=== PATIENT | male | born 1950 | race Caucasian/White ===

== ENCOUNTER 2022-11-26 07:45 | Day surgery (SDC) | payer MEDICARE ==
[2022-11-24 13:31] LABS: BASOPHILS # (AUTO) 0.07 K/uL (0.00-0.20); BASOPHILS % (AUTO) 0.7 % (0.0-5.0); EOSINOPHILS # (AUTO) 0.18 K/uL (0.00-0.70); EOSINOPHILS % (AUTO) 1.9 % (0.0-8.0); HEMATOCRIT 44.9 % (42-54); IMMATURE GRANULOCYTE ABSOLUTE 0.04 K/uL (0-1); LYMPHOCYTES # (AUTO) 1.6 K/uL (1.0-4.8); LYMPHOCYTES % (AUTO) 16.4 % (21.0-51.0); MEAN CORPUSCULAR HEMOGLOBIN 32.6 pg (27.0-33.0); MEAN CORPUSCULAR HGB CONC 31.8 g/dL (32.0-36.0); MEAN CORPUSCULAR VOLUME 102.5 fL (79-99); MONOCYTES # (AUTO) 0.6 K/uL (0.1-1.0); MONOCYTES % (AUTO) 6.4 % (3.0-13.0); NEUTROPHILS % (AUTO) 74.2 % (40.0-77.0); PLATELET COUNT (AUTO) 340 K/uL (130-400); RED BLOOD CELL COUNT(AUTO) 4.38 MIL/uL (4.50-6.20); RED CELL DISTRIBUTION WIDTH 15.2 % (11.0-15.5); WHITE BLOOD COUNT (AUTO) 9.4 K/uL (4.8-10.8)
[2022-11-24 13:39] LABS: CREATININE 1.3 mg/dL (0.5-1.5); POTASSIUM 5.1 mmol/L (3.5-5.1)
[2022-11-24 13:42] LABS: INR 0.94 (0.85-1.15)
[2022-11-24 13:44] LABS: PARTIAL THROMBOPLASTIN TIME 30.1 SEC (26.3-35.5)
[2022-11-24 16:54] VITALS: BP 133/63; PULSE 60; RESP 16
[2022-11-26] VITALS (15 sets, daily range): BP systolic 118–128; BP diastolic 49–65; PULSE 55–70; RESP 10–18
[~2022-11-26] VITALS: Ht 188 cm; Wt 102.7 kg
[~2022-11-26 07:45] MED LIST: AEC81 PO; AMIO200T68 PO; APIX5TAB PO; ATEN50TA PO; ATOR40TA69 PO; DILT120T PO; FOLIC ACID PO; HYDR500C2 PO; INSLAN SQ; LOSA25TA41 PO; METF-445 PO; SITA100T12 PO; TAMS-1 PO
[2022-11-26] MEDS ORDERED: IOHEXOL-350 50ML VIAL IV ONE (08:17)
[2022-11-26] MEDS ORDERED: CEFTRIAXONE 1G VIAL ONE (08:28)
[2022-11-26] MEDS ORDERED: 0.9%NACL 1000ML 1,000 ML IV ONE (08:29)
[2022-11-26] MEDS ORDERED: LIDOCAINE PF 100MG/5ML (2%) SYRINGE 5ML ONE (10:30)
[2022-11-26] MEDS ORDERED: DEXAMETHASONE SOD PHOSPHATE 10MG/ML 1ML VIAL ONE (10:30)
[2022-11-26] MEDS ORDERED: ONDANSETRON 4MG INJ ONE (10:31)
[2022-11-26] MEDS ORDERED: PROPOFOL 10 MG/ML 20ML VIAL IV ONE (10:31)
[2022-11-26] MEDS ORDERED: FENTANYL CITRATE PF 50 MCG/1 ML 2ML VIAL ONE (10:31)
[2022-11-26] MEDS ORDERED: MIDAZOLAM HCL 1 MG/ML 2ML VIAL ONE (10:31)
[2022-11-26] MEDS ORDERED: ROCURONIUM 10MG/1ML SYR 10 MG/ML ML ONE (10:31)
[2022-11-26] MEDS ORDERED: PHENYLEPHRINE HCL 10 MG/ML 1ML VIAL IV ONE (11:36)
[2022-11-26] MEDS ORDERED: EPHEDRINE SULFATE 50 MG/ML AMPULE ONE (11:45)
[2022-11-26] MEDS ORDERED: GLYCOPYRROLATE 1 MG/5 ML SYRINGE ONE (12:04)
[2022-11-26] MEDS ORDERED: NEOSTIGMINE 5MG/5ML SYR IV ONE (12:05)
[2022-11-26] MEDS ORDERED: PHENAZOPYRIDINE HCL 200 MG TABLET ONE (13:27)
== END 2022-11-26 14:00 | disposition home or self-care (01) ==
LOC: DAH 07:45
PROVIDERS: ATTEND Urology
DX: D09.0 Carcinoma in situ of bladder (principal); N30.21 Other chronic cystitis with hematuria; N30.01 Acute cystitis with hematuria; N40.0 Benign prostatic hyperplasia without lower urinary tract symptoms; N35.919 Unspecified urethral stricture, male, unspecified site; I10 Essential (primary) hypertension; E11.9 Type 2 diabetes mellitus without complications; I48.19 Other persistent atrial fibrillation; Z79.01 Long term (current) use of anticoagulants; Z79.899 Other long term (current) drug therapy; Z98.890 Other specified postprocedural states; Z87.891 Personal history of nicotine dependence; Z79.84 Long term (current) use of oral hypoglycemic drugs
CPT/HCPCS: 80048; 85025; 85610; 85730; 36415; 93005; 52204; 82948; 88305; 74420; A6260; A4663; J7030 ×2; J7120; A4354; J3010; J3490 ×2; J1100; J2710; J2001; J0696; J2250; J2704; J2405; J2371; Q9967; A4358; C1769; A4215; A4223; A4222; A4221; C1758 ×3; A4600; A4510